=== PATIENT | female | born 1960 | race Caucasian/White ===

== ENCOUNTER 2016-08-29 06:31 | Day surgery (SDC) | payer OTHER ==
[~2016-08-29] VITALS: Ht 170.2 cm; Wt 94.5 kg
[2016-08-29] VITALS (14 sets, daily range): BP systolic 106–142; BP diastolic 52–97; PULSE 71–92; RESP 8–18; O2SAT 88–99
[~2016-08-29 06:31] MED LIST: ACET500L27 PO; ALBU8.5H2 INHALATION; Bupivacaine Liposome 1.3% 20 mL Inj INFILTRATE ONE; FLUT9.9S NS; HYDR28.311 RC; IBUP-1827 PO; LISI10TA PO; LORA10CA PO; NAPR500T PO; NITR100 PO; PHEN-777 PO; TRAM50TA2 PO
[2016-08-29] MEDS ORDERED: Ondansetron 2 mg/mL 2 mL Inj ONE (06:32)
[2016-08-29] MEDS ORDERED: Propofol 10,000 mCg/mL 20 mL Inj ONE (06:32)
[2016-08-29] MEDS ORDERED: MetoCLOpramide 5 mg/mL 2 mL Inj ONE (06:32)
[2016-08-29] MEDS ORDERED: fentaNYL-PF 50 mCg/mL 2 mL Inj ONE (06:32)
[2016-08-29] MEDS ORDERED: Phenylephrine/NS-PF 100 mCg/mL 5 mL Syringe IVPUSH ONE (06:32)
[2016-08-29] MEDS ORDERED: EPHEDrine/NS 5 mg/mL 5 mL Syringe ONE (06:32)
[2016-08-29] MEDS ORDERED: Dexamethasone 4 mg/mL Inj ONE (06:32)
[2016-08-29] MEDS: Lactated Ringer's 1,000 ML IV SCH ×4 (06:45→09:57)
[2016-08-29] MEDS ORDERED: MULT-1018 PO (07:36)
--- NOTE | 2016-08-29 09:09 | PCM.HPANE ---
Patient Data Surgeon Admitting Provider: Attending Provider:Ken Chaney MD Primary Care Physician:[facility] Other Provider:Michelle Nelson Anesthesia Reason for Visit Internal And External Hemorrhoids Ht/WT & BMI Height (Feet): 5 Height (Inches): 7.00 Weight (Kilograms): 94.500 Body Mass Index 32.00 Allergies Coded Allergies: aspirin (Verified Allergy, Mild, 06/12/16) erythromycin base (Verified Allergy, Mild, 06/12/16) hydrochlorothiazide (Verified Allergy, Mild, 06/12/16) morphine (Verified Allergy, Mild, 06/12/16) triamterene (Verified Allergy, Mild, 06/12/16) latex (Verified Allergy, Unknown, RASH, 06/12/16) Past Anesthesia History Anesthesia History: Positive for:: Anesthesia Reactions (Morphine causes nausea /vomiting), Denies:: Abnormal Airway, Difficult Intubation, Fam Anesthesia Reaction, Fam Malignant Hypertherm, Malignant Hyperthermia Diabetes History Hx Diabetes?: No MRSA MRSA: Yes (Back of leg 2005) Medications Home Meds Incl Beta Thad: No Reported Medications Multivitamin (Multi Vitamin Daily)1 Each Tablet1 Each PO DAILY 30 Days Ref 0 08/29/16 Albuterol HFA (Proair HFA)8.5 Gm Hfa.aer.ad2 Puffs INHALATION Q4H #1 INHALER 08/28/16 Lisinopril 10 Mg Rpenwk22 Mg PO DAILY 30 Days Ref 0 08/28/16 Hydrocortisone (Proctosol-Hc)28.35 Gm Cream.appl28.35 Gm RC QID PRN For Pain 08/25/16 Naproxen (Naprosyn)500 Mg Pewapa054 Mg PO BID PRN For Pain Ref 0 08/25/16 Tramadol 50 Mg Zopofb25 Mg PO Q4H PRN For Pain Ref 0 08/25/16 Acetaminophen 500 Mg/5 Ml Ahleth678 Mg PO DAILY PRN For Pain 06/13/16 Loratadine (Claritin)10 Mg Azafgzk36 Mg PO DAILY Ref 0 06/13/16 Fluticasone Propionate (Flonase Allergy Relief)50 Mcg/Actuation [place].susp9.9 Ml NS DAILY 06/12/16 Discontinued Reported Medications Nitrofurantoin Monohyd/M-Cryst (MacroBid)100 Mg Ggfmbsu737 Mg PO BID Ref 0 08/25/16 Phenazopyridine 200 Mg Szknnn416 Mg PO TID PRN For Spasm Ref 0 08/25/16 Ibuprofen 600 Mg Xkishs663 Mg PO QID PRN For Pain Ref 0 06/13/16 History History of ENT Problems?: No HEENT History: Positive for:: Sinus Problem (year around allergies) Denies:: Abnormal Airway Difficult Intubation Hx of Heart Problems?: Yes Cardiovascular History: Positive for:: Hypertension Denies:: Pacemaker Hx of Respiratory Problem?: Yes Respiratory History: Positive for:: Asthma (hx of, starting inhaler use) Other Resp Pertinent History: shortness of breath, now starting inhaler use 06/05 Hx Neurologic Problems?: No Neurological History: Positive for:: Dizziness (vertigo) Headaches Denies:: CVA Hx of GI Problems?: Yes Gastrointestinal History: Positive for:: Gastroesphageal Reflux Rectal Bleeding (HX OF HEMERRHOIDS) Genitourinary History: Positive for:: Urinary Tract Infection Female Hx: Denies:: Currently (Hysterectomy) Skin History: Denies:: History Skin Disorders? Pressure Ulcers Hx Musculoskeletal Problems?: Yes Musculoskeletal History: Positive for:: Joint Replacement (Bilateral knees) Musculoskeletal Trauma (collar bones, left shoulder, nose) Osteoarthritis Hx of Psycho/Social Problems?: No Hx Surgeries?: Yes (Hysterectomy, left shoulder, right knee, left knee, tonsils ) Hx Any Other Health Problems?: Yes Other History: Denies:: Cancer Hx Diabetes: No Hx Alcohol Use: Yes (1-2 beers a day; marijuana occassionally)Hx Substance Use : No Smoking Status: Former Smoker Stop/Bang S-Snoring: Do You Snore Loudly: Yes T-Tired: feel tired, fatigued: No O-Obsered: Observed not breath: No P-Blood Pressure: treated: No B- Body Mass Index > 35 kg/m2: No A- Age over 50: Yes N- Neck Large Circumference: No G- Gender Male: No LEONARD Total Score: 2 Risk Assessment Category Category 1A: Patient has history of documented sleep apnea, and HAS NOT received any narcotic, sedative or anesthesia administration during this stay. Category 1B: Patient has history of documented sleep apnea, and HAS received any narcotic , sedative or anesthesia administration during this stay Category 2: Patient has SUSPECTED Obstructive Sleep Apnea, and HAS received any narcotic , sedative or anesthesia administration during this stay. Category 3: Patient has SUSPECTED Obstructive Sleep Apnea and HAS NOT received narcotic, sedative or anesthesia administration during this stay. Category 4: Outpatient in Procedural Areas with known sleep apnea or who screen positive for High Risk via the STOP/BANG questionnaire. Exam Exam Vital Signs Vital Signs Date Time Temp Pulse Resp B/P Pulse Ox O2 Delivery O2 Flow Rate FiO2 08/29/16 07:23 35.9 71 18 106/52 97 Room Air 08/29/16 07:00 35.9 71 18 106/52 97 Room Air General Appearance: Alert, Oriented X3, Cooperative, No Acute Distress HEENT/AIRWAY: MP 2 Lungs: Clear to Auscultation Heart: Exam Unremarkable Meds/Labs/Diagnostics Admission Meds Current Medications Lactated Ringer's (Lr) 1,000 ml @ 10 mls/hr Q24H IV Last administered on 08:46; Start 08/29/16 at 05:00; Stop 09/02/16 at 08:59 Bupivacaine HCl (Exparel 1.3% Inj) 20 ml STK-MED ONCE INFILTRATE Last administered on 08/29/16 08:46; Start 08/29/16 at 08:46; Stop 08/29/16 at 08:47 ; Status DC Plan Impression Patient chart reviewed, patient interviewed and anesthestic plan with risks, benefits, and alternatives discussed, and informed consent obtained. NPO Status: BLACK COFFEE AT 0500 ASA Physical Status: ASA2 Mod Systemic Disease Anesthetic Plan: GA Bene/Risks/Altern/Consents: Yes HP Complete Prior to Induction: Yes Akira Hernandez MD Aug 29, 2016 09:09
[2016-08-29] MEDS ORDERED: Lactated Ringer's 1,000 ML IV SCH (09:28)
[2016-08-29] MEDS ORDERED: Lactated Ringer's 500 ML IV PRN (09:28)
[2016-08-29] MEDS ORDERED: fentaNYL-PF 50 mCg/mL 2 mL Inj IVPUSH PRN (09:30)
[2016-08-29] MEDS ORDERED: MetoCLOpramide 5 mg/mL 2 mL Inj IVPUSH PRN (09:30)
[2016-08-29] MEDS ORDERED: EPHEDrine Sulfate 50 mg/mL Inj IVPUSH PRN (09:30)
[2016-08-29] MEDS ORDERED: Phenylephrine 10,000 mCg/mL Inj IVPUSH PRN (09:30)
[2016-08-29] MEDS ORDERED: HYDROmorphone 1 mg/mL Inj IVPUSH PRN (09:30)
[2016-08-29] MEDS ORDERED: Dexamethasone 4 mg/mL Inj IVPUSH PRN (09:30)
[2016-08-29] MEDS ORDERED: Ondansetron 2 mg/mL 2 mL Inj IVPUSH PRN (09:30)
[2016-08-29] MEDS ORDERED: Bupivacaine Liposome 1.3% 20 mL Inj INFILTRATE ONE (09:35)
[2016-08-29] MEDS ORDERED: oxyCODONE-Acetamin 5-325 mg Tablet PO PRN (10:25)
--- NOTE | 2016-08-29 10:32 | PCM.SURGOP ---
Surgical Operative Report Date of Service: Aug 29, 2016 Pre Operative Diagnosis Internal and external hemorrhoids Post Operative Diagnosis Internal and external hemorrhoids Procedure: Internal and external hemorrhoidectomy, 2 columns Surgeon and Hot Kettle Tender: Surgeon: Ken Chaney MD Assistants: Eusebia Rooney PA-C Indication for Procedure 55-year-old woman who has undergone several rounds of hemorrhoid banding in the office for bleeding. She also had a significant external hemorrhoid which had actually gotten worse. Her bleeding initially improved, but also got worse. After discussion of risks and benefits, she agreed to proceed with internal and external hemorrhoidectomy. Findings: A large right posterior hemorrhoid bundle was excised, and a smaller left posterolateral hemorrhoid bundle was excised. Procedure Details After smooth induction of general anesthesia with an LMA, she was placed in the high lithotomy position, and was prepped and draped in wide sterile fashion. A procedural pause was performed according to the SCOAP checklist, and all were found to be in agreement. Digital rectal exam was performed. A bivalve anal retractor was used to evaluate the anal canal. There was a large, fairly wide internal and external hemorrhoid bundle in the right posterior position. A 2-0 chromic stay suture was placed at the apex of the hemorrhoidal tissue. The hemorrhoid bundle was excised using electrocautery down to the sphincter muscle. Hemostasis was achieved. The anoderm was then closed using a running, locking 2-0 chromic stitch, which extended out onto the perianal skin. There was a smaller hemorrhoid bundle in the left posterolateral position. A 2-0 chromic suture was placed at the apex of the hemorrhoid bundle. The hemorrhoid was excised using electrocautery down to the sphincter muscle. Both hemorrhoids were sent together for permanent pathology. Hemostasis was achieved. The anoderm was closed using a running, locking 2-0 chromic stitch. Hemostasis was adequate. A perianal block was then performed using 20 mL of liposomal bupivacaine. Sterile dressings were applied. At the end of the case all needle and sponge counts were correct 2. The patient was awakened from anesthesia without difficulty, and taken to the recovery room in satisfactory condition, having tolerated the procedure well. Complications There were no periprocedural complications identified. Surgical Specimen Removed: Yes Specimen sent to Pathology: Yes Surgical Specimen description: Hemorrhoids Anesthetic Plan: GA Grafts, Implants: None Output, Estimated Blood Loss: 50 Blood Administration during dinh: No Drains: None Catheters: None copies to: Quita Strauss PA-C, Joshua D MD Aug 29, 2016 10:32
--- NOTE | 2016-08-29 10:33 | PCM.DISURG ---
Surgical Discharge Instruction Date of Service Aug 29, 2016 Dates of Hospitalization Date of Hospital Admission Providers Admitting Physician: Primary Care Physician: [facility] Attending Physician: Ken Chaney MD Discharge Diagnosis Post Operative diagnosis Internal and external hemorrhoids Diet Discharge Diet: No restrictions Activity Discharge Activity-General: No restrictions Dressing and Incisional Care Dressing Care: Change soiled dressing (as needed) Hygiene: May shower Follow Up Plan Follow Up Plan In the general surgery PA postoperative clinic in 2-3 weeks Call your provider for: Fever (over 101.5) Ken Chaney MD Aug 29, 2016 10:33
--- NOTE | 2016-08-29 10:55 | PCM.ANEP2 ---
Post Anesthesia Evaluation ASA/CMS Post Anesthesia VS in Patient's Normal Range?: Yes Resp Stable; Airway Patent?: Yes CV Function & Hydration Stable: Yes Mental Status Recovered?: Yes Pain control Satisfactory?: Yes N/V Control Satisfactory?: Yes Akira Hernandez MD Aug 29, 2016 10:55
--- NOTE | 2016-08-29 10:55 | PCM.ANEP1 ---
Post Anesthesia Phase 1 PACU Phase 1 Assessment Date of Service: Aug 29, 2016 Vital Signs Vital Signs Date Time Temp Pulse Resp B/P Pulse Ox O2 Delivery O2 Flow Rate FiO2 08/29/16 10:45 75 9 131/74 88 Room Air 08/29/16 10:40 78 12 139/68 98 Room Air 08/29/16 10:35 85 15 142/74 99 Room Air 08/29/16 10:30 92 9 138/81 95 Room Air 08/29/16 10:26 36.8 91 9 137/79 95 Room Air 08/29/16 07:23 35.9 71 18 106/52 97 Room Air 08/29/16 07:00 35.9 71 18 106/52 97 Room Air Anesthetic Administered: GA Level of Alertness: Awake, talking MADDEN's with Equal Strength: Yes Pain: Yes Pain Scale Score: 7 Nausea or Vomiting: No Oxygen Delivery: Room Air Lungs: Clear to Auscultation Dermatome Level: Full Sensation Akira Hernandez MD Aug 29, 2016 10:54
[2016-08-29] MEDS ORDERED: HYDROmorphone 0.5 mg/0.5 mL iSecure Syringe ONE ×2 (11:00→11:15)
--- NOTE | 2016-08-30 16:32 | PATH ---
SURGICAL PATHOLOGY Attending Physician:Patricia Zhou CASE STATUS: Signed Out PATIENT NAME: MALA MOYER PID: [id number] : 1960 DATE COLLECTED:08/29/2016 16:54 SPECIMEN: Hemorrhoids CLINICAL HISTORY: INTERNAL AND EXTERNAL HEMORRHOIDS A: HEMORRHOIDS FINAL DIAGNOSIS: 1.HEMORRHOIDS: HEMORRHOID TISSUE IDENTIFIED. NEGATIVE FOR DYSPLASIA AND MALIGNANCY. ICD10 CODE K64 GROSS DESCRIPTION: The specimen is received in one formalin filled container labeled with the patient's name, sublabeled "hemorrhoids" and consists of 2 portions of tissue which aggregate to 4.5 x 2.5 x 1.5 CM. The specimen is inked, and 4 volunteer patient representative sections are submitted in 2 cassettes. 08/29/2016 [facility] MICRO DESCRIPTION: See diagnosis. ICD-9 CODES: CPT CODES: 1: 96451 Electronically Signed Out Etelvina Garg MD [facility] [address], [place] [address] Technical component performed at [facility] [address], [place], [address]
== END 2016-08-29 23:59 | disposition home or self-care (01) ==
LOC: SAS 06:31
PROVIDERS: ATTEND Student in an Organized Health Care Education/Training Program
DX: K64.4 Residual hemorrhoidal skin tags (principal); K64.8 Other hemorrhoids; I10 Essential (primary) hypertension; J45.909 Unspecified asthma, uncomplicated; Z86.14 Personal history of Methicillin resistant Staphylococcus aureus infection; Z79.82 Long term (current) use of aspirin
CPT/HCPCS: 46260; J1100; J1170; J2175; J2370; J2405; J2765; J7120

== ENCOUNTER 2016-09-01 14:45 | Emergency (ER) | payer OTHER ==
[~2016-09-01] VITALS: Ht 170.2 cm; Wt 95.5 kg
[~2016-09-01 14:45] MED LIST changes: -Bupivacaine Liposome 1.3% 20 mL Inj INFILTRATE ONE; -IBUP-1827 PO; +MULT-1018 PO; -NITR100 PO; -PHEN-777 PO
[2016-09-01 15:00] VITALS: BP 155/88; PULSE 95; RESP 16; O2SAT 95
--- NOTE | 2016-09-01 16:19 | ED.REPORT ---
HPI- Female Date of Service Sep 01, 2016 ED Provider: Clara Laughlin History of Present Illness: on stool softners for 3 days . stool is "stuck", taking oxycodone. surgery done by DR. Chaney appointment with him on 09/13/2006. surgery was done for hemmoroids on Sunday am. Nursing Notes Stated Complaint: POST OP/BLEEDING Chief Complaint: Female Abdominal Pain Nursing Notes Reviewed: Yes Allergies: Coded Allergies: aspirin (Verified Allergy, Mild, 06/12/16) erythromycin base (Verified Allergy, Mild, 06/12/16) hydrochlorothiazide (Verified Allergy, Mild, 06/12/16) morphine (Verified Allergy, Mild, 06/12/16) triamterene (Verified Allergy, Mild, 06/12/16) latex (Verified Allergy, Unknown, RASH, 06/12/16) Scheduled Albuterol HFA (Proair HFA) 8.5 Gm Hfa.aer.ad 2 PUFFS INHALATION Q4H Fluticasone Propionate (Flonase Allergy Relief) 50 Mcg/Actuation [place].susp 9.9 ML NS DAILY Lisinopril (Lisinopril) 10 Mg Tablet 10 MG PO DAILY Loratadine (Claritin) 10 Mg Capsule 10 MG PO DAILY Multivitamin (Multi Vitamin Daily) 1 Each Tablet 1 EACH PO DAILY Scheduled PRN Acetaminophen (Acetaminophen) 500 Mg/5 Ml Liquid 500 MG PO DAILY PRN PRN For Pain Hydrocortisone (Proctosol-Hc) 28.35 Gm Cream.appl 28.35 GM RC QID PRN PRN For Pain Naproxen (Naprosyn) 500 Mg Tablet 500 MG PO BID PRN PRN For Pain Tramadol (Tramadol) 50 Mg Tablet 50 MG PO Q4H PRN PRN For Pain General Time Seen by MD: 16:17 Chief Complaint Other (constipation) Hx Obtained From: Patient Sudden in Onset?: No Symptom Duration: Since onset Past Medical History Past Medical History Denies: Asthma, Diabetes mellitus Past Surgical History hemmoroids, knee times 4 and left shouder times 4 Reports: Hysterectomy, Tonsillectomy Smoking History Former Smoker (quit in 2007) Social History Alcohol Use: "Social" Drug Use: Denies drug use Occupation lives with boyfrend, works for [employer] 09/01/2016 Ambulatory Status Independent Review of Systems Basic Review of Systems Eyes: Vision NL, No discharge Respiratory: No shortness of breath, No cough, No wheeze Cardiovascular: No chest pain, No dyspnea on exertion, No orthopnea, No parox noct dyspnea, No palpitations Hematologic: No bleeding, No bruising Allergy / Immune: No allergy Psychiatric: Normal thought content Physical Exam Initial Vital Signs Vital Signs (First) Date Time Temp Pulse Resp B/P Pulse Ox O2 Delivery O2 Flow Rate FiO2 09/01/16 15:00 36.2 95 16 155/88 95 Initial VS: Reviewed, Vital signs normal General/Constitutional: Well-developed, Well-nourished Head / Eyes: Atraumatic, Normocephalic, PERRL ENT: Mucous membranes moist, Conjunctiva normal, No scleral icterus Neck: Supple, Non-tender, Full range of motion Respiratory: Breath sounds normal, Clear to auscultation, No respiratory distress Cardiovascular: Regular rate & rhythm, Heart sounds normal, Intact distal pulses Abdomen / GI: Soft, Non-tender, No guarding, No rebound, No distention Back: No CVA tenderness Lymphatic: No lymphadenopathy Extremities: Vascular intact, Neuro intact, No swelling, No tenderness Skin: Warm, Dry, No cyanosis Neurologic: Alert, Oriented, Nonfocal Psychiatric: Mood/affect normal, Behavior normal, Normal thought content General/Constitutional: Awake, Alert, No acute distress, Well appearing, Well developed, Well hydrated, Well nourished, Cooperative, Not toxic appearing Respiratory / Chest: Atraumatic, Breath sounds NL, Breath sounds = bilat, No respiratory distress, No rales, No rhonchi, No wheezing, No retractions Cardiovascular: Heart rate NL, Regular rhythm, Heart sounds NL, No gallop Abdomen: Atraumatic, Soft, Non-tender, McBurney's non-tender Re-Eval/Medical Decision Med Decision/Clinical Course Consult with Dr. Krause, director of education for [facility]. Can do enema and continue with miralx. Patient provided with mineral oil enema and has started having stool in the ER. Discharge & Departure Impression: Primary Impression: Constipation Constipation type: unspecified constipation type Qualified Code: K59.00 - Constipation, unspecified Disposition: Home Patient Instructions: Constipation (ED), High Fiber Diet (ED) Additional Instructions: The percocet that you are taking is playing a huge part in the constipation. Need to stop this as soon as possible. You have started to have stool movements in the ER. You can take 1/2 of a bottle of magnesium citrate if you do not feel you have had enough stool move. You can also add reglan 10 mg 4 times a day. This helps with moving the gut. A list of high fiber foods are provided. Please add several of these to your diet.Need to do a sitz bath several times a day. Please follow with your surgeon as scheduled. Referrals: Quita Strauss PA-C (PCP) Ken Chaney MD EDSupervising Provider for APC: Franklyn Healy MD copies to: Ken Chaney MD; Quita Strauss PA-C, Sue ARNP Sep 01, 2016 16:19
[2016-09-01] MEDS ORDERED: Sodium Biphos-Phos 133 mL Enema RECTAL ONE (16:40)
[2016-09-01 19:33] VITALS: BP 155/87; PULSE 96; RESP 20; O2SAT 97
== END 2016-09-01 19:34 | disposition home or self-care (01) ==
LOC: SED 14:45
DX: K59.09 Other constipation (principal); T40.2X5A Adverse effect of other opioids, initial encounter; X58.XXXA Exposure to other specified factors, initial encounter; Y92.9 Unspecified place or not applicable; Y93.9 Activity, unspecified; Y99.9 Unspecified external cause status; Z98.890 Other specified postprocedural states; Z87.891 Personal history of nicotine dependence; Z88.6 Allergy status to analgesic agent; Z88.1 Allergy status to other antibiotic agents; Z88.8 Allergy status to other drugs, medicaments and biological substances; Z88.5 Allergy status to narcotic agent